=== PATIENT | female | born 1935 | race Two or more races ===

== ENCOUNTER 2019-01-25 13:39 | Outpatient (CLI) | payer MEDICARE ==
[~2019-01-25] VITALS: Ht 157.5 cm; Wt 49.0 kg
--- NOTE | 2019-01-25 21:15 | Consultation ---
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 The patient was a recent discharge from [facility] with discharge diagnoses of gallstone pancreatitis, acute and chronic cholecystitis, status post endoscopic retrograde cholangiopancreatography with stenting, and laparoscopic cholecystectomy on 12/26/2018. The patient was discharged with paroxysmal atrial fibrillation, hypertension, and also history of remote cerebrovascular accident. The patient presents today for initial consultation, scheduled for repeat ERCP for stent placement. At this time, the patient denies any abdominal pain, denies any nausea, vomiting, or diarrhea. The patient is seen, no apparent distress. She currently denies any constipation or diarrhea. The patient did have one episode yesterday of abdominal pain after p.o. intake, which has resolved at this time. The patient currently denies any weight loss and denies any changes in dietary habits. PAST MEDICAL HISTORY: Gallstones, paroxysmal atrial fibrillation, remote CVA, left MCA distribution in May 2018, hypertension. PAST SURGICAL HISTORY: The patient denies any. ALLERGIES: The patient denies any medication allergies. No known food allergies. MEDICATIONS AT HOME: The patient is on amiodarone 200 mg daily, Eliquis 2.5 mg b.i.d. FAMILY HISTORY: Noncontributory. SOCIAL HISTORY: The patient lives with her son. Denies any alcohol or tobacco use. REVIEW OF SYSTEMS: The patient reports no fevers, no chills, no night sweats. No acute weight loss. Denies any abdominal pain at this time. No vomiting. Reports of constipation. PHYSICAL EXAMINATION: GENERAL APPEARANCE: This is an 83-year-old woman. She is currently alert, awake, and oriented x4, in no apparent distress. VITAL SIGNS: Current vital signs, temperature 97.7, blood pressure 126/68, pulse 59, and oxygen saturation 98% on room air. Height 5 feet 2 inches, weight 108.3. NECK: Supple. No lymphadenopathy. LUNGS: Clear to auscultation. HEART: Bradycardic at 56. ABDOMEN: Soft, nondistended, nontender with no rebound or guarding. No palpable masses. EXTREMITIES: Lower extremities with 2+ pulses. ASSESSMENT AND PLAN: Status post ERCP with summary of findings: 1. Large periampullary diverticulum. 2. Dilated common bile duct with a filling defect with distal common bile duct suggestive of stone. 3. Narrowing of the ampulla, most probable from diverticulum. 4. Status post ERCP, stone removal and stent placement. RECOMMENDATIONS: The patient will be scheduled for repeat ERCP in approximately 2 to 3 months for stent removal. We will contact the patient's daughter, Kelley Lai. The patient was advised to stop Eliquis for min of 48 to 72 hours prior to procedure date. Everett Miller M.D. [employer]-Mando Rust N.P. DR: DIPTI JOB#: [id number] CC: MILVIA
[2019-01-28] MEDS ORDERED: ELIQUIS5 MG PO (09:23)
[2019-01-28] MEDS ORDERED: UNOBMED (09:23)
[2019-01-28] MEDS ORDERED: AMIODARONE HCL400 M1 ORAL (09:27)
== END 2019-01-25 15:39 | disposition home or self-care (01) ==
LOC: PAN 13:39
DX: K57.90 Diverticulosis of intestine, part unspecified, without perforation or abscess without bleeding (principal); R00.1 Bradycardia, unspecified; I10 Essential (primary) hypertension; E78.5 Hyperlipidemia, unspecified; Z86.73 Personal history of transient ischemic attack (TIA), and cerebral infarction without residual deficits; Z90.49 Acquired absence of other specified parts of digestive tract; K59.00 Constipation, unspecified
CPT/HCPCS: 99202

== ENCOUNTER 2019-01-28 12:36 | Outpatient (CLI) | payer MEDICARE ==
[~2019-01-28 12:36] MED LIST: AMIODARONE HCL400 M1 ORAL; ELIQUIS5 MG PO; UNOBMED
[2019-01-28 12:58] VITALS: BP 144/78
--- NOTE | 2019-01-28 15:20 | General Progress Note ---
Assessment/Plan Problem List: (1) retained Biliary stent Assessment/Plan: plan ERCP next week Subjective ROS Limited/Unobtainable: Yes Allergies: Coded Allergies: No Known Allergies (Unverified , 01/28/19) Objective Last 24 Hour Vital Signs Date Time Temp Pulse Resp B/P (MAP) Pulse Ox O2 Delivery O2 Flow Rate FiO2 01/28/19 12:58 99.2 55 18 144/78 (100) 98 General Appearance: alert EENT: normal ENT inspection Neck: supple Cardiovascular: normal rate Respiratory/Chest: decreased breath sounds Abdomen: normal bowel sounds, non tender, soft Extremities: non-tender Everett Miller MD Jan 28, 2019 15:20
== END 2019-01-28 16:13 | disposition home or self-care (01) ==
LOC: PAN 12:36
DX: Z46.59 Encounter for fitting and adjustment of other gastrointestinal appliance and device (principal)
CPT/HCPCS: 99212